=== PATIENT | male | born 1960 | race Caucasian/White ===

== ENCOUNTER 2024-10-08 12:15 | Emergency (ER) | payer MEDICARE, SELFPAY ==
--- OUTSIDE RECORDS SUMMARY | 2023-04-12 11:45 | XMS_ITS | Continuity of Care Document ---
Author Organization [facility] Address [address] [facility] [address] [place] [address] Phone Care Team Providers Care Senior Quality Methods Specialist Name Role Phone Beka BOLANOS, VELIA, ABA, [...] E&M Established 15 Mins [facility], [address] [place] [address] Dr Bahena 1000Suite 1000Ch[place], [id number], [place] tel:[phone] [facility] Venous insufficiency (chronic) (peripheral)Es sential (primary) hypertension 4 Beka BOLANOS RVT, RPVI Robert. [address] [facility], [address], [place], [id number] , [place]. tel:[phone] Referring Provider: Jabari Sams MD, [address] [place] [address] Suite [facility], [place], [address]. tel:[phone] [facility], [address] [place] [address] [address] 1000Charly [place], [id number], [place] tel:[phone] CVR - [facility] Encounter for follow-up examination after completed treatment for conditions other than malignant neVaricose veins of right lower extremity with pain 4 Beka BOLANOS RVT, RPVI Robert. [address] [place] [address], [place], [id number] , [place]. tel:[phone] Referring Provider: Jabari Sams MD, [address] [facility] Suite [facility], [place], [address]. tel:[phone] Office/Outpt E&M Established 15 Mins [facility], [address] [place] [address] Suite [address]Suite 1000Charly [place], [id number], [place] tel:[phone] CVR [facility] Chronic venous hypertension (idiopathic) with other complications of bilateral lower extremity Fe0 4 Beka BOLANOS RVT, ABA Melo. [address] [place] [address], [place], [id number] , [place]. tel:[phone] Referring Provider: Jabari Sams MD, [address] [facility] Suite [facility], [place], [address]. tel:[phone] [place] [facility], [address] [place] [address] [address] 1000Charly [place], [id number], [place] tel:[phone] CVR - [facility] Encounter for follow-up examination after completed treatment for conditions other than malignant neVaricose veins of right lower extremity with pain 4 Beka BOLANOS RVT, RPVI Robert. [address] [facility], [address], [place], [id number] , [place]. tel:[phone] Referring Provider: Jabari Sams MD, [address] [facility] [address], [facility] [place], [address]. tel:[phone] [place] [facility], [address] [place] [address] [address], [place], [id number], [place] tel:[phone] CVR - [place] [facility] [place] Varicose veins of right lower extremity with inflammation 4 Beka BOLANOS RVT, ABA Melo. [address] [place] [address], [address], [place], [place], [id number] , [place]. tel:[phone] Referring Provider: Jabari Sams MD, [address] [address], [facility] [place], [address]. tel:[phone] [place] [facility], [address] [place] [address] Dr Bahena 1000[address], [place], [id number], [place] tel:[phone] CV[place] - [place] [facility] [place] Chronic venous hypertension (idiopathic) with inflammation of right lower extremity 4 Beka BOLANOS RVT, ABA Melo. [address] [place] [address], [place] [address], [place], [place], [id number] , [place]. tel:[phone] Referring Provider: Jabari Sams MD, [address] [place] [address], [facility] [place], [address]. tel:[phone] Offic/outpt E&m Estab 5 Min Trial - Telemedicine [place] [facility], [address] [place] [address] [facility] [address], [place], [id number], [place] tel:[phone] [place] - [place] [facility] [place] Chronic venous hypertension (idiopathic) with other complications of bilateral lower extremity 3 Beka BOLANOS RVT, RPVI Robert. [address] [place] [address], [facility] [address], [place], [place], [id number] , [place]. tel:[phone] Referring Provider: Jabari Sams MD, [address] [facility] [address], [facility] [place], [address]. tel:[phone] Offic Cons New/estab Mod-hi 60 [place] [facility], [address], [place], [id number], tel:[phone] CVR - [place] [facility] [place] Varicose veins of bilateral lower extremities with other complicationsV aricose veins of right lower extremity with inflammationVa ricose veins of left lower extremity with inflammationPa in in right lower legEssential (primary) hypertensionPr uritus, unspecifiedPai n in left lower legLocalized edemaDisorder of pigmentation, unspecified 3 Beka BOLANOS, RVT, ABA Melo. [facility]0 [facility], [place] [address], [place], [place], [id number] , [place]. tel:[phone] Referring Provider: Jabari Sams MD, [address] [address], [place], [address]. tel:[phone] [facility], [address] [place] [address] Dr Bahena [address], [place], [id number], tel:[phone] CV[place] - [place] Varicose veins of bilateral lower extremities with pain 3 Michele BOLANOS FACS RVT ABA Her. [address] [place] [address], [place], [address], [place]. tel:[phone] Referring Provider: Jabari Sams MD, [address] [address], [place], [address]. tel:[phone] Family History Family Member Type Diagnosis Age At Onset No Information Payers Payer name Insurance type Covered democrat ID Melissa barcenas() [facility] [id number] Social History Type Description Quantity Date Captured [...] Information Instructions Date Instruction Additional Infor mation Compression stocking usage as conservative measure Related to Venous insufficiency (chronic) (peripheral) Patient education booklet given Related to Venous insufficiency (chronic) (peripheral) Lifestyle [...] to Body mass index (BMI) 21.0-21.9, adult Giving Encouragement to exercise Related to Body mass index (BMI) 21.0-21.9, adult Lifestyle education Related to B vahid mass index (BMI) 21.0-21.9, adult Patient education booklet given Related to Varicose veins of bilateral lower extremities with other complications Pre and post instruc tions reviewed and provided Related to Varicose veins of bilateral lower extremities with other complications Assessments Type Assessment Date No Information Patient Care Teams Name Effective Dates (start - stop) Status Members No Information
[2024-10-08 12:18] VITALS: BP 181/84; PULSE 65; RESP 18; TEMP 36.8; O2SAT 98; BMI 28.1
--- NOTE | 2024-10-08 12:18 | ED.GENADULT ---
HPI - General Adult General Chief complaint: GI Bleed Stated complaint: Blood in stool Time Seen by Provider: 10/08/24 13:58 History of Present Illness ED Provider: Kevin Escobedo MD HPI narrative: [age] male reporting rectal bleeding intermittently for about 3 days he has had this in the past he has had what he described as unremarkable colonoscopies in the past. He had 1 brown normal bowel movement with associated bright red blood 3 days ago and since that time he has had a few additional. No rectal pain no trauma. Denies fever lightheadedness or anemic symptoms Related Data Allergies Allergy/AdvReac Type Severity Reaction Status Date / Time No Known Allergies Allergy Verified 10/08/24 12:20 [facility] Social History Social History Advance Directives: No Advance Directives Information Provided: Yes Physical Exam ED Exam Exam: EXAM: Gen: Alert, awake, well appearing, well hydrated. Head: Atraumatic Eyes: Anicteric, Normal conjunctiva. ENT: Moist mucosa, no pallor. ? Neck: Supple. Skin: ?No observable rash or bruising on exposed or examined skin Respiratory: Breathing comfortably, No distress.Clear to auscultation bilaterally, symmetric chest expansion, No wheeze, rales, ronchi. Cardiovascular: Regular rate and rhythm. No murmurs or rub. Well perfused periphery, warm extremities. No edema. ? Abdominal: No focal tenderness. Soft, no objective distension. No palpable masses or obvious organomegaly. ?No guarding, no rebound tenderness or other peritoneal findings. Defers rectal patient had self-reported rectal exam at urgent care prior to arrival here. He verbally tells me that it was reported to him as unremarkable though there was a small scant amount of red blood on the glove : No flank tenderness. Neuro: Alert. Gross movement of all extremities intact. ? Psych: Calm. Cooperative. MSK: No grossly visible deformity. Vital signs: See flowsheet Vital Signs: Vital Signs - 24 hr 10/08/24 12:18 10/08/24 14:00 10/08/24 15:18 Temperature 98.2 F 98.2 F 98.2 F Pulse Rate 65 65 65 Respiratory Rate 18 18 18 Blood Pressure 181/84 H 172/71 H 181/84 H Pulse Oximetry 98 100 98 Oxygen Delivery Method Room Air Room Air Room Air 10/08/24 15:19 Temperature 98.3 F Pulse Rate 71 Respiratory Rate 15 Blood Pressure 165/74 H Pulse Oximetry 100 Oxygen Delivery Method Room Air BMI result Body Mass Index 28.1 Course Course Course Narrative: This is a Rapid Medical Examination (RME) performed by Cyndi Albrecht PA-C in triage. Full HPI, ROS, assessment and treatment plan per primary provider in the Main ED. Hx: 63 yo M here for eval of bloody stools x3 days. bright red blood. no abd pain. no thinners. hx of similar w/ constipation + straining. seen at in [place], advised to come to the ED. PE/vitals: well appearing Plan: labs Medical Decision Making Medical Decision Making MDM Narrative: Medical Decision Making: [age] male with self-described red blood mixed with normal stool. No anemic symptoms hemodynamics stable. No prior CBC to compare however stable CBC on repeat in the ED and slightly low end of normal range. Likely can be worked up as an outpatient though strict return precautions described to the patient No anticoagulation. Reliable for return after shared decision-making return precautions Preliminary Favored Differential Diagnosis: Lower GI bleed favored over upper GI bleed. Likely AVM versus Ca verse hemorrhoidal among additional considered etiologies Testing Interpreted Independently: ?See below for details Radiology or Lab testing Results Reviewed: ?See below for details Consults: ?See below for details Independent Historians/External Chart Reviews: ?See below for details Social Determinants of Health Impacting MDM/Planning: ?See below for details Admission/Observation Consideration of admission/observation: Escalation of care including admission/observation considered Lab Data MDM Lab Attestation statement: I reviewed the patient's lab results. 10/08/24 14:57 10/08/24 12:33 Labs: Lab Results 10/08/24 10/08/24 Range/Units 12:33 14:57 WBC 7.7 7.6 (4.8-10.8) X10*3/uL RBC 3.95 L 4.00 L (4.60-5.80) X10*6/uL Hgb 12.7 L 12.8 L (14.0-18.0) g/dl Hct 37.0 L 37.4 L (42.0-52.0) % MCV 93.7 93.5 (80.0-98.0) fL MCH 32.2 32.0 (27.0-33.0) pg MCHC 34.3 34.2 (31.0-36.0) g/dl RDW 13.5 13.5 (11.0-16.0) % Plt Count 275 283 (160-400) X10*3/uL MPV 9.9 9.8 (9.4-12.4) fL Immature Gran % (Auto) 0.3 0.3 (0.0-0.4) % Neut % (Auto) 64.3 66.9 (45-73) % Lymph % (Auto) 22.0 21.2 (20-40) % [place] % (Auto) 11.3 H 10.1 (2-11) % Eos % (Auto) 1.4 1.1 (0-4) % Baso % (Auto) 0.7 0.4 (0-2) % Lymph # (Auto) 1.7 1.6 (1.2-4.9) X10*3/uL [place] # (Auto) 0.9 0.8 (0.1-1.2) X10*3/uL Eos # (Auto) 0.1 0.1 (0.0-0.4) X10*3/uL Baso # (Auto) 0.1 0.0 (0.0-0.2) X10*3/uL Abs Immat Gran (auto) 0.02 0.02 (0.00-0.03) X10*3/uL Absolute Neuts (auto) 4.9 5.1 (2.0-8.3) x10*3/uL Absolute Nucleated RBC 0.000 0.000 (0.0-0.012) X10*3/uL Nucleated RBC % (auto) 0.0 0.0 (0.0-0.2) /100WBC PT 11.2 (10.9-12.4) SEC INR 1.0 (0.9-1.1) APTT 28.7 (26.7-34.1) SEC Sodium 142 (135-145) mmol/L Potassium 3.8 (3.3-5.1) mmol/L Chloride 107 (96-108) mmol/L Carbon Dioxide 29 (22-29) mmol/L Anion Gap 10 L (12-20) BUN 15 (9-16) mg/dL Creatinine 1.01 (0.5-1.4) mg/dL Estim Creat Clear Calc 87.9 Estimated GFR > 60 Random Glucose 118 H (60-115) mg/dL Calcium 8.9 (8.4-10.2) mg/dL Magnesium 2.2 (1.6-2.6) mg/dL Total Bilirubin 0.3 (0.0-1.0) mg/dL AST 29 (5-37) U/L ALT 40 (0-40) U/L Alkaline Phosphatase 90 (39-117) U/L Total Protein 7.0 (6.5-8.0) g/dL Albumin 4.2 (3.5-5.0) g/dL Lipase 41 (8-78) U/L Discharge Plan Discharge Clinical Impression: Hematochezia Patient Disposition: Home, Self-Care Instructions: Rectal Bleeding (ED), Colonoscopy (DC) Additional Instructions: DISCHARGE DIAGNOSES: Rectal bleeding unclear cause at this time reassuring blood counts stable with repeating HISTORY OF PRESENTATION: ?Rectal bleeding for 3 days EMERGENCY DEPARTMENT COURSE,TESTS, TREATMENTS: While in the ED today blood counts were in a stable range and did not drop on repeat, hemoglobin 12 0.7-12.8 on repeat. Blood chemistries and other tests normal DISCHARGE MEDICATIONS: ?[We have made no changes to your regular medication regimen] FOLLOW-UP: ?Call your primary or general physician soon as possible to discuss your symptoms, your ED visit and to discuss follow up plans Call GI as you will need a colonoscopy as outpatient INSTRUCTIONS ?& RETURN PRECAUTIONS: If any symptoms change first call your primary physician, if it is after-hours your primary doctors office should have a provider vision care associate you can speak with. If the symptoms are severe or very concerning to you then call 911 or return to the ED. Return for severe or recurrent bleeding Kevin Escobedo MD Emergency Physician [facility] Referrals: [facility] G[facility]ology Services [Provider Group, Gastroenterology] - 2 days Referral Note: [place] for hematochezia. call today inform them that we wanted you to be seen within the week to schedule a colonoscopy Interventions: ED Discharge Assessment Last Done: 10/08/24 15:18 Discharge Date/Time: 10/08/24 15:27 Print Language: Filipino
[2024-10-08 12:42] LABS: MANUAL DIFF FLAG NO
[2024-10-08 12:44] LABS: Hematocrit 37.0 % (42.0-52.0); Hemoglobin 12.7 g/dl (14.0-18.0); Imm Gran Abs Auto 0.02 X10*3/uL (0.00-0.03); Imm Gran Pct Auto 0.3 % (0.0-0.4); Lymphocytes Absolute Auto 1.7 X10*3/uL (1.2-4.9); Mean Corpuscular HGB Conc 34.3 g/dl (31.0-36.0); Mean Corpuscular Hemoglobin 32.2 pg (27.0-33.0); Mean Corpuscular Volume 93.7 fL (80.0-98.0); NRBC Abs Auto 0.000 X10*3/uL (0.0-0.012); NRBC Pct Auto 0.0 /100WBC (0.0-0.2); Platelet Count 275 X10*3/uL (160-400); Red Blood Count 3.95 X10*6/uL (4.60-5.80); White Blood Count 7.7 X10*3/uL (4.8-10.8)
[2024-10-08 12:59] LABS: Alanine Aminotransferase 40 U/L (0-40); Albumin Level 4.2 g/dL (3.5-5.0); Alkaline Phosphatase 90 U/L (39-117); Anion Gap 10 (12-20); Aspartate Amino Transferase 29 U/L (5-37); Blood Urea Nitrogen 15 mg/dL (9-16); Calcium 8.9 mg/dL (8.4-10.2); Carbon Dioxide 29 mmol/L (22-29); Chloride 107 mmol/L (96-108); Creatinine Clr Calc Pharmacy 87.9; Estimated Glomerular Filt Rate > 60; Lipase 41 U/L (8-78); Magnesium 2.2 mg/dL (1.6-2.6); Potassium 3.8 mmol/L (3.3-5.1); Sodium 142 mmol/L (135-145); Total Protein 7.0 g/dL (6.5-8.0)
[2024-10-08 14:00] VITALS: BP 172/71; PULSE 65; RESP 18; TEMP 36.8; O2SAT 100
[2024-10-08 15:02] LABS: MANUAL DIFF FLAG NO
[2024-10-08 15:03] LABS: Hematocrit 37.4 % (42.0-52.0); Hemoglobin 12.8 g/dl (14.0-18.0); Imm Gran Abs Auto 0.02 X10*3/uL (0.00-0.03); Imm Gran Pct Auto 0.3 % (0.0-0.4); Lymphocytes Absolute Auto 1.6 X10*3/uL (1.2-4.9); Mean Corpuscular HGB Conc 34.2 g/dl (31.0-36.0); Mean Corpuscular Hemoglobin 32.0 pg (27.0-33.0); Mean Corpuscular Volume 93.5 fL (80.0-98.0); NRBC Abs Auto 0.000 X10*3/uL (0.0-0.012); NRBC Pct Auto 0.0 /100WBC (0.0-0.2); Platelet Count 283 X10*3/uL (160-400); Red Blood Count 4.00 X10*6/uL (4.60-5.80); White Blood Count 7.6 X10*3/uL (4.8-10.8)
--- OUTSIDE RECORDS SUMMARY | 2024-10-08 15:16 | XMS_ITS | Encounter Summary ---
Author Organization [facility] Address [address] [place] [address] Care Team Providers Care Bargeman Name Role Phone Jabari Sams MD Primary Care Provider Encounter Details Date Type Department Care Team (Late st Contact Info) Description 12/11/2023 Lab Requisition [facility] - Main Lab [address] [place] [id number] Jabari Sams MD [address] [facility] [address] [place] [address] Other specified abnormal findings of blood chemistry Social History Tobacco Use Types Packs/Day Years Used Date Smoking Tobacco: Former Cigarettes Q uit: 10/12/2007 Smokeless Tobacco: Never Alcohol Use Standard Drinks/Week Comments No 0 (1 standard drink = 0.6 oz pur e alcohol) Sex and Gender Information Value Date Recorded Sex Assigned at Not on file Legal Sex Male 3:26 PM EST Gender Identity Not on file Sexual Orientation Not on file documented as of this encounter Plan of Treatment Not on file documented as of this encounter Procedures Procedure Name Priority Date/Time Associated Diagnosis Comments HEMOGLOBIN A1C Routine 12/11/2023 12:00 AM EST Other specified abnormal findings of blood chemistry documented in this encounter Results * Hemoglobin A1c (12/11/2023 12:00 AM EST) Hemoglobin A1C 5.8 <6.5 % LAB CHEMISTRY METHOD 12/12/2023 1:52 PM EST [facility] Mean Bld Glu Estim. 120 mg/dL LAB CHEMISTRY METHOD 12/12/2023 1:52 PM EST [facility] Blood Venous blood specimen / Unknown 12/11/2023 12/11/2023 6:27 PM EST Jabari Sams MD LAB BLOOD ORDERABLES Final Result [facility] [address] [place] [address], documented in this encounter Visit Diagnoses Diagnosis Other specified abnormal findings of blood chemistry documented in this encounter Care Teams Bargeman Relationship Specialty Start Date End Date Jabari Sams MD [address] PCP - General Internal Medicine 02/20/12 documented as of this encounter
--- OUTSIDE RECORDS SUMMARY | 2024-10-08 15:17 | XMS_ITS ---
Author Name [facility] [place]) Organization Unknown Care Team Organization Name Specialty Phone Email Start Date End Da te [facility] Primary [facility] 08/24/202308/2023 [facility] Primary Care 12/14/2021
--- OUTSIDE RECORDS SUMMARY | 2024-10-08 15:17 | XMS_ITS | Clinical Summary ---
Author Organization [address] Address [address] [place] [phone] Phone Care Team Providers Care Vp Software Support Name Role Phone Jabari Sams MD Primary Care Provider Surgical History Surgery Date Site/Laterality Comments COLONOSCOPY 09/04/2006 PROCEDURE: MN COLONOSCOPY FLX DX W/COLLJ SPEC WHEN PFRMD; COMMENT: Diverticulosis ESOPHAGOGASTRODUODENOSCOPY 09/04/2006 PROCEDURE: MN ESOPHAGOGASTRODUODENOSCOPY TRANSORAL DIAGNOSTIC; COMMENT: Negative on PPI rx HERNIA REPAIR PROCEDURE: REPAIR INGUINAL HERNIA Medical History Medical History Date Comments Irritable bowel syndrome 06/05/2006 DX:Irri table bowel syndrome; COMMENT: alternating constipation/diarrhea. Diverticulitis of colon (wit hout mention of hemorrhage)(562.11) 06/05/2006 DX:Diverticulitis of co gilles (without mention of hemorrhage)(562.11); COMMENT: first episode, outpatient management, May,. Special screening for malign ant neoplasms, colon 09/04/2006 DX:Special screening for mal ignant neoplasms, colon; COMMENT: Negative colonoscopy 09/04/2006, no colon cancer screening needed for 10 years. Esophageal reflux 04/25/2006 DX:Esophageal reflux Abnormal EKG 03/19/2009 DX:Abnormal EKG Elevated prostate specific a ntigen (PSA) 05/12/2006 DX:Elevated prostate specifi c antigen (PSA) Inguinal hernia without ment ion of obstruction or gangrene, unilateral or unspecified, (not specified as recurrent) 04/25/2006 DX:Inguinal hernia without m ention of obstruction or gangrene, unilateral or unspecified, (not specified as recurrent) Depressive disorder, not els ewhere classified 04/25/2006 DX:Depressive disorder, not elsewhere classified Anxiety state, unspecified 04/25/2006 DX:An xiety state, unspecified Family History Medical History Relation Name Comments Other: generally well Father Hypertension Mother Other: myocardial infarction at the age of 69 Mother Blindness Neg Hx Cataracts Neg Hx Glaucoma Neg Hx Macular degeneration Neg Hx Strabismus Neg Hx Relation Name Status Comments Father Mother Social History Tobacco Use Types Packs/Day Years [...] on file Sexual Orientation Not on file Obstetrics History Plan of Treatment Health Maintenance Due Date Last Done Comments Pneumococcal Vaccine: 50+ Ye ars (1 of 1 - PCV) 10/15/2009 Zoster Vaccines (1 of 2) 10/15/2009 DTaP,Tdap,and Td Vaccines (2 - Td or Tdap) 10/01/2019 09/30/2009 Cholesterol Screening (Lipid Panel) 01/05/2022 Colorectal Cancer Screening: Colonoscopy 01/05/2022 HIV Screening 01/05/2022 Hepatitis C Screening 01/05/2022 Social Influencers of Health Screening 01/05/2022 COVID-19 Vaccine ( - 2023-2 5 season) 2023 Depression Screening 02/07/2024 Influenza Vaccine (#1) 2024 RSV Immunization Adult Patie nts (1 - 1-dose 75+ series) 10/15/2034 HIB Vaccines Aged Out No longer eligi ble based on patient's age to complete this topic HPV Vaccines Aged Out No longer eligi ble based on patient's age to complete this topic Hepatitis A Vaccines Aged Out No long er eligible based on patient's age to complete this topic Hepatitis B Vaccines Aged Out No long er eligible based on patient's age to complete this topic IPV Vaccines Aged Out No longer eligi ble based on patient's age to complete this topic MMR Vaccines Aged Out No longer eligi ble based on patient's age to complete this topic Meningococcal ACWY Vaccine Aged Out N o longer eligible based on patient's age to complete this topic Meningococcal B Vaccine Aged Out No l onger eligible based on patient's age to complete this topic RSV Immunization Patients Un joselyn 20 months Aged Out No longer eligible b ased on patient's age to complete this topic Varicella Vaccines Aged Out No longer eligible based on patient's age to complete this topic Insurance * Guarantor: Alex Vail Account Type Relation to Patient Date of Phone Billing Address Personal/Family Self 1960 [phone] (Work) [address] [place] [address] [facility] Care Teams Vp Software Support Relationship Specialty Start Date End Date Jabari Sams MD [address] [place] [address] PCP - General Internal Medicine 02/20/12
[2024-10-08 15:18] VITALS: BP 181/84; PULSE 65; RESP 18; TEMP 36.8; O2SAT 98
[2024-10-08 15:19] VITALS: BP 165/74; PULSE 71; RESP 15; TEMP 36.8; O2SAT 100
[2024-10-08 15:20] LABS: INTERNATIONAL NORM RATIO 1.0 (0.9-1.1); Prothrombin Time 11.2 SEC (10.9-12.4)
[2024-10-08 15:22] LABS: Partial Thromboplastin Time 28.7 SEC (26.7-34.1)
== END 2024-10-08 15:27 | disposition home or self-care (01) ==
PROVIDERS: Physician Assistant Medical; Emergency Provider Emergency Medicine
DX: K92.1 Melena (principal)
CPT/HCPCS: 36415; 80053; 83690; 83735; 85025; 85610; 85730; 99283

== ENCOUNTER 2024-10-09 14:05 | Outpatient (AMB) | payer MEDICARE, SELFPAY ==
--- OUTSIDE RECORDS SUMMARY | 2023-04-12 11:45 | XMS_ITS | Continuity of Care Document ---
Author Organization [facility] Address [address] [facility] [address] [place] [address] Phone Care Team Providers Care Billet Shearer Name Role Phone Beka BOLANOS, VELIA, ABA, [...] E&M Established 15 Mins [facility], [address] [place] [address] Dr Bahena 1000Suite 1000Ch[place], [id number], [place] tel:[phone] [facility] Venous insufficiency (chronic) (peripheral)Es sential (primary) hypertension 4 Beka BOLANOS RVT, RPVI Robert. [address] [facility], [address], [place], [id number] , [place]. tel:[phone] Referring Provider: Jabari Sams MD, [address] [place] [address] Suite [facility], [place], [address]. tel:[phone] [facility], [address] [place] [address] [address] 1000Charly [place], [id number], [place] tel:[phone] CVR - [facility] Encounter for follow-up examination after completed treatment for conditions other than malignant neVaricose veins of right lower extremity with pain 4 Beka BOLANOS RVT, RPVI Robert. [address] [place] [address], [place], [id number] , [place]. tel:[phone] Referring Provider: Jabari Sams MD, [address] [facility] Suite [facility], [place], [address]. tel:[phone] Office/Outpt E&M Established 15 Mins [facility], [address] [place] [address] [address] 1000Charly [place], [id number], [place] tel:[phone] CVR [facility] Chronic venous hypertension (idiopathic) with other complications of bilateral lower extremity Fe0 4 Beka BOLANOS RVT, ABA Melo. [address] [place] [address], [place], [id number] , [place]. tel:[phone] Referring Provider: Jabari Sams MD, [address] [facility] Suite [facility], [place], [address]. tel:[phone] [place] [facility], [address] [place] [address] [address]Suite 1000Charly [place], [id number], [place] tel:[phone] CVR - [facility] Encounter for follow-up examination after completed treatment for conditions other than malignant neVaricose veins of right lower extremity with pain 4 Beka BOLANOS RVT, RPVI Robert. [address] [facility], [address], [place], [id number] , [place]. tel:[phone] Referring Provider: Jabari Sams MD, [address] [facility] [address], [place], [address]. tel:[phone] [place] [facility], [address] [place] [address] [address], [place], [id number], [place] tel:[phone] [place] [facility] [place] Varicose veins of right lower extremity with inflammation 4 Beka BOLANOS RVT, ABA Melo. [address] [place] [address], [address], [place], [place], [id number] , [place]. tel:[phone] Referring Provider: Jabari Sams MD, [address] [address], [place], [address]. tel:[phone] [place] [facility], [address] [place] [address] Dr Bahena 1000[address], [place], [id number], [place] tel:[phone] [facility] - [place] [facility] [place] Chronic venous hypertension (idiopathic) with inflammation of right lower extremity 4 Beka BOLANOS RVT, ABA Melo. [address] [place] [address], [place] [address], [place], [place], [id number] , [place]. tel:[phone] Referring Provider: Jabari Sams MD, [address] [place] [address], [facility] [place], [address]. tel:[phone] Offic/outpt E&m Estab 5 Min Trial - Telemedicine [place] [facility], [address] [place] [address] [facility] [address], [place], [id number], [place] tel:[phone] [facility] - [place] [facility] [place] Chronic venous hypertension (idiopathic) with other complications of bilateral lower extremity 3 Beka BOLANOS RVT, RPVI Robert. [address] [place] [address], [facility] [address], [place], [place], [id number] , [place]. tel:[phone] Referring Provider: Jabari Sams MD, [address] [facility] [address], [place], [address]. tel:[phone] Offic Cons New/estab Mod-hi 60 [place] [facility], [address], [place], [id number], tel:[phone] [facility] - [place] [facility] [place] Varicose veins of bilateral lower extremities with other complicationsV aricose veins of right lower extremity with inflammationVa ricose veins of left lower extremity with inflammationPa in in right lower legEssential (primary) hypertensionPr uritus, unspecifiedPai n in left lower legLocalized edemaDisorder of pigmentation, unspecified 3 Beka BOLANOS, RVT, ABA Melo. [facility], [place] [address], [place], [place], [id number] , [place]. tel:[phone] Referring Provider: Jabari Sams MD, [address] [address], [place], [address]. tel:[phone] [facility], [address] [place] [address] Dr Bahena 1000[address], [place], [id number], tel:[phone] [facility] - [place] [facility] [place] Varicose veins of bilateral lower extremities with pain 3 Michele BOLANOS FACS RVT ABA Her. [address] [place] [address], [place], [address], [place]. tel:[phone] Referring Provider: Jabari Sams MD, [address] [address], [place], [address]. tel:[phone] Family History Family Member Type Diagnosis Age At Onset No Information Payers Payer name Insurance type Covered democrat ID Melissa barcenas() [facility] [id number] Social History Type Description Quantity Date Captured [...] Of Treatment Date Type Action Status Goal Tobacco cessation counseling completed Goal Diet education completed Goal Tobacco cessation counseling completed Goal Tobacco cessation counseling completed Goal Diet education completed Goal Tobacco cessation counseling completed Referral Ordered: Weight management: Referral to [...] No Information Instructions Date Instruction Additional Infor mation Patient education booklet given Related to Venous insufficiency (chronic) (peripheral) Compression stocking usage as conservative measure Related to Venous insufficiency (chronic) (peripheral) Lifestyle education Related to B vahid mass index (BMI) 21.0-21.9, adult Giving Encouragement to exercise Related to Body mass index (BMI) 21.0-21.9, adult Diet education Related to Body mass index (BMI) 21.0-21.9, adult Continue compression stocking us e Related to Chrn Vns Hyprtnsn w/Compl (Pain Edema Swelling); BILAT Patient education booklet given Related to Chrn Vns Hyprtnsn w/Compl (Pain Edema Swelling); BILAT Diet education Related to Body mass index (BMI) 21.0-21.9, adult Pre and post instruc tions reviewed and provided Related to Varicose veins of bilateral lower extremities with other complications Patient education booklet given Related to Varicose [...]
[2024-10-09 14:08] VITALS: BP 128/70; PULSE 83; O2SAT 98; BMI 27.9
--- NOTE | 2024-10-09 14:08 | A.OFFPC_ITS ---
Vital Signs 10/09/24 14:08 Height 6 ft Weight 206 lb BMI 27.9 BP 128/70 Blood Pressure Location Lt brachial Position Sitting Pulse 83 Pulse Source Pulse Oximeter Pulse Oximetry (%) 98 Oxygen Delivery Method Room Air Intake Visit Reasons: new patient Allergies No Known Allergies Allergy (Verified 10/09/24 14:35) Medication List - Last Reconciled 10/09/24 by Jose Barbosa MD losartan 100 mg PO DAILY tamsulosin (Flomax) 0.4 mg PO DAILY Tobacco use date assessed: 10/09/24 Fall risk assessment: No Falls in past year Last assessed Fall Risk: 10/09/24 Dental Screening Dental Screen Date: 10/09/24 Did you have a dental visit in the last 12 months?: Yes Did you have a dental problem in the last 6 months where you did not have access to dental care?: No Was dental information given to patient?: Patient has dentist HPI new patient HPI Details Patient comes in for his HDF (ER visit yesterday, 10/08/24) and to establish care - is a new patient to the practice His previous PCP was Dr. Sams at [facility], who retired from medical practice sometime last year Patient states that he was feeling well but recalls getting constipated often lately and thinks that he was straining a lot when he was using the bathroom for the past few days leading up to his seeing blood in his stools about 3 to 4 days ago States that he's had at least a couple of colonoscopies done in the past and as far as he is aware, his colonoscopies have all come out normal He denies experiencing any abdominal pain recently when he was passing out blood in his stool He denies any headaches of dizziness Denies any chest pains, no SOB No nausea/vomiting noted lately He also denies any acute urinary symptoms but he takes Tamsulosin everyday for issues with his prostate PFSH Medical History (Updated 10/09/24 @ 15:19 by Jose Barbosa MD) Overweight (BMI 25.0-29.9) BPH (benign prostatic hyperplasia) Essential hypertension Surgical History (Updated 10/09/24 @ 15:03 by Jose Barbosa MD) History of colonoscopy History of inguinal hernia repair Family History (Updated 10/09/24 @ 14:15 by Selene Henson CMA) Mother No problems noted. Father No problems noted. Brother No problems noted. Brother No problems noted. Brother No problems noted. Sister No problems noted. Social History Housing: House Patient Tobacco Use Status: Former Tobacco user Tobacco use type: Cigarette e-Cigarette/Vaping Use: Never Used Second Hand Smoke Exposure: No service: No Current occupational status: retired Current occupational exposures/hazards: No Cognitive needs: No Hearing needs: No Vision needs: Yes Questionnaire PHQ-9 Over the last 2 weeks, how often have you been bothered by any of the following problems? 1. Little interest or pleasure in doing things: several days 2. Feeling down, depressed, or hopeless: not at all 3. Trouble falling or staying asleep, or sleeping too much: not at all 4. Feeling tired or having little energy: several days 5. Poor appetite or overeating: not at all 6. Feeling bad about yourself - or that you are a failure or have let yourself or your family down: not at all 7. Trouble concentrating on things, such as reading the newspaper or watching television: not at all 8. Moving or speaking so slowly that other people could have noticed. Or the opposite - being so fidgety or restless that you have been moving around a lot more than usual: not at all 9. Thoughts that you would be better off or of hurting yourself in some way: not at all Total score: 2 Depression Screening Interpretation: Negative Depression Screening Done: Yes 79460 - PHQ-9 Billing: Yes Source: Developed by Drs. Kameron Ortiz, Jess Johnson, Onur Carey and colleagues, with an educational jesus from [employer]. Thrive Questionnaire Date Thrive assessed: 10/09/24 I am a: Patient What is your living situation today?: I have a steady place to live Within the past 12 months, did the food you bought not last and you didn't have the money to get more?: I choose not to answer this question Within the past 12 months, did you worry whether your food would run out before you got money to buy more?: I choose not to answer this question Do you have trouble paying for medicines?: I choose not to answer this question Do you have trouble getting transportation to medical appointments?: I choose not to answer this question Do you have trouble paying your heating and electricity bill?: I choose not to answer this question Do you have trouble taking care of your child, family member or friend?: I choose not to answer this question Do you have trouble with day-to-day activities such as bathing, preparing meals, shopping, managing finances, etc.?: I choose not to answer this question Are you currently unemployed and looking for a job?: I choose not to answer this question Are you interested in more education?: I choose not to answer this question Please select the resources that you would like help with: None Currently or been in a relationship where the following occur: I choose not to answer THRIVE Score: 0 AUDIT C Alcohol Use Questionnaire (AUDIT-C) 1. How often do you have a drink containing alcohol?: Never 3. How often do you have six or more drinks on one occasion?: Never Total Score: 0 Score Reviewed/Action Taken: Yes MINOR-7 AMB Questionnaire MINOR-7 Date MINOR - 7 assessed: 10/09/24 Feeling nervous, anxious, or on edge: 0 = Not at all Not being able to stop or control worryin = Not at all Worrying too much about different things: 0 = Not at all Trouble relaxin = Not at all Being so restless that it is hard to sit still: 0 = Not at all Becoming easily annoyed or irritable: 0 = Not at all Feeling afraid as if something awful might happen: 0 = Not at all Total MINOR-7 score (0-4 normal; 5-9 mild; 10-14 moderate; 15-21 severe): 0 Source: Developed by Drs. Kameron Ortiz, Jess Johnson, Onur Carey and colleagues, with an educational jesus from [employer]. Review of Systems Const Denies fatigue, Denies fever(s) and Denies headache(s) ENT Denies dysphagia, Denies dizziness, Denies otalgia, Denies headache(s), Denies neck pain and Denies sore throat Card Denies chest pain, Denies palpitations and Denies dyspnea Resp Denies chest congestion, Denies cough and Denies dyspnea GI Denies abdominal pain, Reports hematochezia (see HPI), Reports constipation (increased lately), Denies dysphagia, Denies heartburn, Denies diarrhea, Denies nausea and Denies vomiting Denies difficulty urinating, Denies dysuria, Denies nocturia and Denies urinary frequency Musc Denies back pain and Denies neck pain Skin/Breast Denies rash Neuro Denies dizziness and Denies headache(s) Endo Denies fatigue and Denies palpitations Physical exam (Primary Care) Vital Signs: Last Vital Signs Pulse 83 10/09/24 14:08 BP 128/70 10/09/24 14:08 Pulse Ox 98 10/09/24 14:08 Oxygen Delivery Method Room Air 10/09/24 14:08 BMI result Body Mass Index 27.9 Tobacco/Smoking Status: Tobacco use Status Tobacco use date assessed 10/09/24 10/09/24 14:16 Patient Tobacco Use Status Former Tobacco user 10/09/24 14:16 Tobacco use type Cigarette 10/09/24 14:16 e-Cigarette/Vaping Use Never Used 10/09/24 14:16 PHQ-9: PHQ-9 Score PHQ-9: Total score 2 10/09/24 14:09 Depression Screening Interpretation: Negative Thrive Assessment: Date of Thrive Assessment Date Thrive assessed 10/09/24 10/09/24 14:09 Currently or been in a relationship where the following occur: I choose not to answer Const General: no acute distress and alert HENMT Throat: Yes posterior oropharynx normal and Yes tonsils normal (no TP congestion noted) Neck Neck: Yes supple and No lymphadenopathy Thyroid: Thyroid normal Resp Auscultation: clear to auscultation bilaterally, no rales and no wheezes Cardio Rate: regular rate Rhythm: regular rhythm Heart sounds: no murmurs GI Palpation (GI): Soft to palpation and nontender Auscultation: normal bowel sounds General: Yes no CVA tenderness Back/Spine/Pelvis Back: no CVA tenderness Thoracic/Lumbar Spine: No lumbar spinal tenderness Skin Rashes: no rashes Extrem General: Yes no clubbing, cyanosis or edema Coding Level of Care Code New Pt Level 4 (81460) Diagnoses Rectal bleeding K62.5 Essential hypertension I10 Benign prostatic hyperplasia, unspecified whether lower urinary tract symptoms present N40.0 Lower urinary tract symptom presence: unspecified whether lower urinary tract symptoms present Overweight (BMI 25.0-29.9) E66.3 Additional Codes PHQ-9 - 08454 - PHQ-9 Billing: Yes ([id number]) Assessment & Plan Assessment & Plan (1) Rectal bleeding: Code(s): K62.5 - Hemorrhage of anus and rectum Category: Medical Plan: Discussed with patient that his recent rectal bleeding is most likely due to hemorrhoids, based on the narrative that he provided over the past few days leading up to his symptoms Have also reassured him that his labs done at the ER yesterday were all mostly unrevealing Will go ahead and refer him to GI for urgent consultation - he will likely benefit from (and is also likely due for) a repeat colonoscopy Have advised patient in the meantime to make sure to increase his oral fluid and dietary fiber intake to avoid getting constipated as much as possible and that he can also take some OTC stool softener if needed (2) Essential hypertension: Code(s): I10 - Essential (primary) hypertension Category: Medical Plan: Reinforced low sodium diet - goal is systolic BP of 120 mm or less Continue Losartan 100 mg QD (3) BPH (benign prostatic hyperplasia): Code(s): N40.0 - Benign prostatic hyperplasia without lower urinary tract symptoms Category: Medical Qualifiers: Lower urinary tract symptom presence: unspecified whether lower urinary tract symptoms present Qualified Code(s): N40.0 - Benign prostatic hyperplasia without lower urinary tract symptoms Plan: Continue Tamsulosin 0.4 mg Q HS Follow up with urology as scheduled (4) Overweight (BMI 25.0-29.9): Code(s): E66.3 - Overweight Category: Medical Plan: Reinforced diet/exercise as tolerated/lose weight Plan To return in February 2025 for his annual physical examination Patient is instructed to get his labs done (ordered today) a few days BEFORE he comes back for his next appointment Orders: Orders Comprehensive Stanley. Panel Fast 02/07/25 E78.00 - Pure hypercholesterolemia, unspecified, Z00.00 - Encounter for general adult medical examination without abnormal findings Lipid Panel 02/07/25 E78.00 - Pure hypercholesterolemia, unspecified, Z00.00 - Encounter for general adult medical examination without abnormal findings Hemoglobin A1c 02/07/25 R73.9 - Hyperglycemia, unspecified Complete Blood Count Auto Diff 02/07/25 D64.9 - Anemia, unspecified, Z00.00 - Encounter for general adult medical examination without abnormal findings TSH reflex Free T4 02/07/25 E78.00 - Pure hypercholesterolemia, unspecified, Z0 0.00 - Encounter for general adult medical examination without abnormal findings UA CC w/rflx Micro + Cult 02/07/25 R30.0 - Dysuria, Z00.00 - Encounter for general adult medical examination without abnormal findings Vitamin D 25-OH Total 02/07/25 E55.9 - Vitamin D deficiency, unspecified, Z00.00 - Encounter for general adult medical examination without abnormal findings Referrals Gastroenterology Referral K62.5 - Hemorrhage of anus and rectum
--- OUTSIDE RECORDS SUMMARY | 2024-10-09 16:23 | XMS_ITS | Patient Health Record ---
[facility] Address [address] [facility] [place] [address] Care Team Providers Care Vamp Cut Out Worker Name Role Phone Jabari Sams MD Primary Care Provider Unav ailable Calvin Sanchesik Unavailable [phone] Allergies Allergen (clinical drug ingredient) Drug/Non Drug Allergy documented on EMR Reaction Allergy Type Onset Date Status bee sting Unknown Drug Allergy Active Reason For Referral No Information Medications Medication SIG (Take, Route, Fr equency, Duration) Notes Start Date End Date Status Lisinopril 20 MG 1 tablet Orally Once a day Active Protonix Active Problems Problem Type SNOMED Code ICD Code Onset Dates Problem Status W/U Status Risk Notes Problem Ingrowing nail ([id number]) Ingrowing nail (L60.0) Active confirmed Plan Of Treatment Pending Test Test Name Order Date 59261-Zyeluqez Plate 09/01/2015 Insurance Providers Payer Name Payer Address Payer Phone Subscriber Number Group Number Insured Name Patient Relationship to Insured Coverage Start Date Coverage End Date [facility] [address] [place] [address] [phone] [id number] Alex Jarvis Self - patient is the insured Medical (General) History Medical History History ICD Code High blood pressure Chicken pox Surgical History Surgery Date(Month/Year) hernia 2013
--- OUTSIDE RECORDS SUMMARY | 2024-10-09 16:23 | XMS_ITS | Clinical Summary ---
Author Organization [address] Address [address] [place] [phone] Phone Care Team Providers Care Machine Operator Picker Name Role Phone Jabari Sams MD Primary Care Provider Surgical History Surgery Date Site/Laterality Comments COLONOSCOPY 09/04/2006 PROCEDURE: [place] COLONOSCOPY FLX DX W/COLLJ SPEC WHEN PFRMD; COMMENT: Diverticulosis ESOPHAGOGASTRODUODENOSCOPY 09/04/2006 PROCEDURE: [place] ESOPHAGOGASTRODUODENOSCOPY TRANSORAL DIAGNOSTIC; COMMENT: Negative on PPI [...] of Phone Billing Address Personal/Family Self 1960 [phone] (Work) [address] [place] [address] [facility] Care Teams Machine Operator Picker Relationship Specialty Start Date End Date Jabari Sams MD [address] [place] [address] PCP - General Internal Medicine 02/20/12
--- OUTSIDE RECORDS SUMMARY | 2024-10-09 16:23 | XMS_ITS | Encounter Summary ---
Author Organization [facility] Address [address] [place] [address] Care Team Providers Care Behavioral Health Director Name Role Phone Jabari Sams MD Primary Care Provider Encounter Details Date Type Department Care Team (Late st Contact Info) Description 12/11/2023 Lab Requisition [facility] - Main Lab [address] [place] [phone] Jabari Sams MD [address] [facility] [address] [place] [address] Other specified abnormal findings of blood chemistry [...] LAB CHEMISTRY METHOD 12/12/2023 1:52 PM EST [facility] Mean Bld Glu Estim. 120 mg/dL LAB CHEMISTRY METHOD 12/12/2023 1:52 PM EST [facility] Blood Venous blood specimen / Unknown 12/11/2023 12/11/2023 6:27 PM EST Jabari Sams MD LAB BLOOD ORDERABLES Final Result [facility] [address] [place] [address], documented in this encounter Visit Diagnoses Diagnosis Other specified abnormal findings of blood chemistry documented in this encounter Care Teams Behavioral Health Director Relationship Specialty Start Date End Date Jabari Sams MD [address] PCP - General Internal Medicine 02/20/12 documented as of this encounter
== END 2024-10-09 14:50 | disposition home or self-care (01) ==
LOC: HO.HMCH 14:06
PROVIDERS: Visit Provider Internal Medicine
DX: K62.5 Hemorrhage of anus and rectum (principal); I10 Essential (primary) hypertension; N40.0 Benign prostatic hyperplasia without lower urinary tract symptoms; E66.3 Overweight

== ENCOUNTER → 2024-10-09 14:05 | Outpatient (BNVA) | payer MEDICARE, SELFPAY | PROVIDERS: Visit Provider Internal Medicine | DX: K62.5 Hemorrhage of anus and rectum (principal); I10 Essential (primary) hypertension; E66.3 Overweight; E78.00 Pure hypercholesterolemia, unspecified; R73.9 Hyperglycemia, unspecified; D64.9 Anemia, unspecified; R30.0 Dysuria | CPT/HCPCS: 96127; 99202 ==

== ENCOUNTER 2024-10-10 13:05 | Outpatient (AMB) | payer MEDICARE, SELFPAY ==
--- OUTSIDE RECORDS SUMMARY | 2023-04-12 11:45 | XMS_ITS | Continuity of Care Document ---
Author Organization [facility] Address [address] [facility] [address] [place] [address] Phone Care Team Providers Care Consumer Services Advisor Name Role Phone Beka BOLANOS, VELIA, ABA, Kameron Unavailable U navailable Allergies, Adverse Reactions, Alerts Substance Reaction Status Criticality No Known Allergies Active No Inform ation Medications Medication Instructions Dosage Effective Dates (start - stop) Status Comments lisinopril 5 mg tablet - Active Procedures Procedure Date Office/Outpt E&M Established 15 Mins Apr Duplex Scan-extrem Veins; Uni/ Office/Outpt E&M Established 15 Mins Mar Duplex Scan-extrem Veins; Uni/ Endovenous Laser, 1st Vein Endovenous Rf, 1st Vein Offic/outpt E&m Estab 5 Min Trial - Tele medicine Offic Cons New/estab Mod-hi 60 Duplex Scan-extrem Veins; Comp Advance Directives Directive Yes / No Effective Date File Name No Information Encounters Encounter Description Practice Location Reason(s) For Visit Diagnoses Date Provider Providers Copied on Encounter Office/Outpt E&M Established 15 Mins [facility], [address] [place] [address] Dr Bahena 1000[address], [id number], [place] tel:[phone] [facility] Venous insufficiency (chronic) (peripheral)Es sential (primary) hypertension 4 Beka BOLANOS RVT, RPVI Robert. [address] [facility], [address], [place], [id number] , [place]. tel:[phone] Referring Provider: Jabari Sams MD, [address] [place] [address] Suite [facility], [place], [address]. tel:[phone] [facility], [address] [place] [address] [address]Charly [place], [id number], [place] tel:[phone] CVR - [facility] Encounter for follow-up examination after completed treatment for conditions other than malignant neVaricose veins of right lower extremity with pain 4 Beka BOLANOS RVT, RPVI Robert. [address] [place] [address], [place], [id number] , [place]. tel:[phone] Referring Provider: Jabari Sams MD, [address] [facility] Suite [facility], [place], [address]. tel:[phone] Office/Outpt E&M Established 15 Mins [facility], [address] [place] [address] [address]Charly [place], [id number], [place] tel:[phone] CVR [facility] Chronic venous hypertension (idiopathic) with other complications of bilateral lower extremity Fe0 4 Beka BOLANOS RVT, ABA Melo. [address] [place] [address], [place], [id number] , [place]. tel:[phone] Referring Provider: Jabari Sams MD, [address] [facility] Suite [facility], [place], [address]. tel:[phone] [facility], [address] [place] [address] [address]Charly [place], [id number], [place] tel:[phone] CVR - [facility] Encounter for follow-up examination after completed treatment for conditions other than malignant neVaricose veins of right lower extremity with pain 4 Beka BOLANOS RVT, RPVI Robert. [address] [facility], [address], [place], [id number] , [place]. tel:[phone] Referring Provider: Jabari Sams MD, [address] [facility] [address], [facility] [place] [place], [address]. tel:[phone] [facility], [address] [place] [address] [address], [place], [id number], [place] tel:[phone] [facility] [place] [facility] [place] Varicose veins of right lower extremity with inflammation 4 Beka BOLANOS RVT, ABA Melo. [address] [place] [address], [address], [place], [place], [id number] , [place]. tel:[phone] Referring Provider: Jabari Sams MD, [address] [address], [facility] [place] [place], [address]. tel:[phone] [facility], [address] [place] [address] Dr Bahena [address], [place], [id number], [place] tel:[phone] [facility] - [place] [facility] [place] Chronic venous hypertension (idiopathic) with inflammation of right lower extremity 4 Beka BOLANOS RVT, ABA Melo. [address] [place] [address], [place] [address], [place], [place], [id number] , [place]. tel:[phone] Referring Provider: Jabari Sams MD, [address] [place] [address], [facility] [place], [address]. tel:[phone] Offic/outpt E&m Estab 5 Min Trial - Telemedicine [facility], [address] [place] [address] [facility] [address], [place], [id number], [place] tel:[phone] [place] - [place] [facility] [place] Chronic venous hypertension (idiopathic) with other complications of bilateral lower extremity 3 Beka BOLANOS RVT, RPVI Robert. [address] [place] [address], [facility] [address], [place], [place], [id number] , [place]. tel:[phone] Referring Provider: Jabari Sams MD, [address] [facility] [address], [facility] [place], [address]. tel:[phone] Offic Cons New/estab Mod-hi 60 [facility], [address], [place], [id number], tel:[phone] [facility] - [place] [facility] [place] Varicose veins of bilateral lower extremities with other complicationsV aricose veins of right lower extremity with inflammationVa ricose veins of left lower extremity with inflammationPa in in right lower legEssential (primary) hypertensionPr uritus, unspecifiedPai n in left lower legLocalized edemaDisorder of pigmentation, unspecified 3 Beka BOLANOS, RVT, ABA Melo. [facility], [place] [address], [place], [place], [id number] , [place]. tel:[phone] Referring Provider: Jabari Sams MD, [address] [address], [place], [address]. tel:[phone] [facility], [address] [place] [address] Dr Bahena [address], [place], [id number], tel:[phone] [facility] [place] [facility] [place] Varicose veins of bilateral lower extremities with pain 3 Michele BOLANOS FACS RVT ABA Her. [address] [place] [address], [place], [address], [place]. tel:[phone] Referring Provider: Jabari Sams MD, [address] [address], [place], [address]. tel:[phone] Family History Family Member Type Diagnosis Age At Onset No Information Payers Payer name Insurance type Covered constitution party ID Melissa barcenas() [facility] [id number] Social History Type Description Quantity Date Captured Comments Alcohol Use Details Unknown Caffeine Use Details Unknown Tobacco Use Status No Information Smoking Status Former Smoker Non-Smoking Tobacco Use Details : No Details Available : No Details Available Sex Male Vital Signs Date / Time: Height Weight BMI Pulse Rate Blood Pressure Temperature Respiratory Rate Body Surface Area Head Circumference Head Circ. Percentile Wt./Segundo. Percentile BMI percentile Pulse Ox Inhaled Ox 70.310 kg (155.00 lbs) 21.0 2 kg/m eter (2) 142/88 mm[Hg] Chief Complaint And Reason For Visit No Information Reason For Referral Reason For Referral No Information Plan Of Treatment Date Type Action Status Goal Diet education completed Goal Tobacco cessation counseling completed Goal Tobacco cessation counseling completed Goal Tobacco cessation counseling completed Goal Tobacco cessation counseling completed Goal Diet education completed Referral Ordered: Weight management: Referral to physician timeframe: 3 Months (related to Body mass index (BMI) 21.0-21.9, adult) ordered Referral Ordered: Weight management: Referral to physician timeframe: 3 Months (related to Body mass index (BMI) 21.0-21.9, adult) ordered History Of Present Illness Encounter Date Complaint History Of Prese nt Illness No Information Functional Status Date Functional Assessmen t No Information Instructions Date Instruction Additional Infor rosaleeion Lifestyle education Related to B vahid mass index (BMI) 21.0-21.9, adult Giving Encouragement to exercise Related to Body mass index (BMI) 21.0-21.9, adult Diet education Related to Body mass index (BMI) 21.0-21.9, adult Patient education booklet given Related to Venous insufficiency (chronic) (peripheral) Compression stocking usage as conservative measure Related to Venous insufficiency (chronic) (peripheral) Continue compression stocking us e Related to Chrn Vns Hyprtnsn w/Compl (Pain Edema Swelling); BILAT Patient education booklet given Related to Chrn Vns Hyprtnsn w/Compl (Pain Edema Swelling); BILAT Patient education booklet given Related to Varicose veins of bilateral lower extremities with other complications Lifestyle education Related to B vahid mass index (BMI) 21.0-21.9, adult Giving Encouragement to exercise Related to Body mass index (BMI) 21.0-21.9, adult Pre and post instruc tions reviewed and provided Related to Varicose veins of bilateral lower extremities with other complications Diet education Related to Body mass index (BMI) 21.0-21.9, adult Assessments Type Assessment Date No Information Patient Care Teams Name Effective Dates (start - stop) Status Members No Information
--- NOTE | 2024-10-10 13:11 | MHC.OFFVIS ---
Vital Signs 10/10/24 13:12 Height 6 ft Weight 206 lb BMI 27.9 BP 145/67 H Blood Pressure Location Lt brachial Position Sitting Pulse 86 Pulse Oximetry (%) 96 Oxygen Delivery Method Room Air Intake Visit Reasons: rectal bleed Intake Note: Patient new consult for rectal bleeding. Patient cc: rectal bleeding/bright red. denies any other GI issues. Client Insights Consultant Required: No Accompanied by: Self / Same As Patient Allergies No Known Allergies Allergy (Verified 10/10/24 13:11) HPI HPI rectal bleed: Details: Patient is a 63-year-old male with PMH of overweight, hypertension, BPH. Referred by PCP for further evaluation of blood in stools Alex presents with acute onset of blood in the stool, first noted three days ago. He describes the bleeding as initially severe, with visible blood in the toilet and on tissue, now markedly decreased. The episode was associated with loose, frequent stools, which are returning toward baseline. No abdominal pain, nausea, vomiting, heartburn, or dysphagia reported. Appetite slightly reduced, attributed to concern about exacerbating bleeding. No unintentional weight loss. Dietary history notable for recent high cheese and junk food intake, possibly contributing to intermittent constipation prior to onset. He sought care at urgent care, where rectal exam was unremarkable, and was referred to the ER for further evaluation; labs at the ER showed borderline low hemoglobin, but no acute intervention was required. No imaging performed at that time. Bleeding has continued to decrease, with only minimal blood noted today. He denies excessive NSAID use Alex is planning imminent international travel and is concerned about recurrence or aggravation of symptoms from potential diagnostics. Prefers to complete any testing upon his return from [place]. History significant for remote diverticulitis treated with antibiotics >15 years ago. No prior GI malignancy or family history of colon/stomach cancer. Social hx: - ETOH use, approx 5 drinks/week -denies recreational drug use -non-smoker - family hx as below -denies personal hx of CA -denies significant cardiopulmonary history -tolerated anesthesia in the past without difficulty. [facility] Medical History (Updated 10/09/24 @ 15:19 by Jose Barbosa MD) Overweight (BMI 25.0-29.9) BPH (benign prostatic hyperplasia) Essential hypertension Surgical History History of colonoscopy History of inguinal hernia repair Family History Mother No problems noted. Father No problems noted. Brother No problems noted. Brother No problems noted. Brother No problems noted. Sister No problems noted. Social History Housing: House Patient Tobacco Use Status: Former Tobacco user Tobacco use type: Cigarette e-Cigarette/Vaping Use: Never Used Second Hand Smoke Exposure: No service: No Current occupational status: retired Current occupational exposures/hazards: No Cognitive needs: No Hearing needs: No Vision needs: Yes Review of Systems Const Reports as per HPI ENT Reports as per HPI Card Reports as per HPI Resp Reports as per HPI GI Reports as per HPI Reports as per HPI Physical Exam Vital Signs: Last Vital Signs Pulse 86 10/10/24 13:12 BP 145/67 H 10/10/24 13:12 Pulse Ox 96 10/10/24 13:12 Oxygen Delivery Method Room Air 10/10/24 13:12 BMI result Body Mass Index 27.9 Const General: healthy appearing, no acute distress and well developed Nutritional Appearance: average body habitus Orientation/consciousness: patient oriented x3 HEENT Head: Yes normal to inspection, Yes normocephalic and Yes atraumatic Face and sinus: Yes normal facial exam Eyes General: appearance normal, both eyes and all related structures Neck Neck: Yes normal visual inspection Resp Effort & Inspection: normal respiratory effort, able to speak in complete sentences, no tracheal deviation and symmetric chest movement Auscultation: clear to auscultation bilaterally Cardio Jugular venous distension: no JVD Rate: regular rate Rhythm: regular rhythm Heart sounds: S1 normal heart sound present, S2 normal heart sound present, no gallops and no murmurs GI Inspection: Yes normal to inspection, No distended and Yes obesity Palpation (GI): Soft to palpation, not firm, nontender and No hepatosplenomegaly present Auscultation: normal bowel sounds Rectal Exam - Male: Yes deferred (per pt) Neuro General: patient oriented x3 Gait exam (Neuro): Normal gait present Psych Appearance: grossly normal Mental Status: mental status grossly normal Speech and movement: Normal speech and movement present Affect: normal affect Attitude: cooperative Thought process: Normal thought process present Thought content: Normal thought content present Insight: Good insight present (Psych) Judgement: Good judgement present (Psych) Assessment & Plan Assessment & Plan (1) Rectal bleeding: Code(s): K62.5 - Hemorrhage of anus and rectum Category: Medical Plan: Acute painless hematochezia, recent dietary changes, prior hx of hemorrhoids, remote diverticulitis, no family hx GI malignancy, normal prior colonoscopies, and negative rectal exam at urgent care. Bleeding improving, hemodynamic instability. Additional Testing: -Colonoscopy ordered (due for routine screening and to r/o neoplasm/polyp/other source) -Abdominal/pelvic CT with IV and oral contrast to assess for diverticulosis/diverticular bleed (to be scheduled prior to or after travel as feasible) -Repeat CBC and renal function 1 week after initial ER labs (to be done after return from travel per pt's preference) Medication Management: -Continue current antihypertensive and tamsulosin -Avoid NSAIDs/ASA until further evaluation Lifestyle Recommendations: -Maintain high-fiber diet, adequate hydration -Avoid dietary triggers (excess cheese/junk food) -No alcohol/tobacco/drug use Follow-Up: -F/u in GI clinic in 3 months or sooner if symptoms worsen -Colonoscopy to be scheduled within 8 weeks post-travel -Instructions to seek immediate care if recurrent heavy bleeding, lightheadedness, syncope, or other acute symptoms while abroad Plan Follow-up in 3 months or sooner as needed Time: I spent a total of 45 minutes on the date of encounter which includes: Preparing to see the patient (reviewed previous documentation, test results and medical history) Performing a medically appropriate exam and/or evaluation Ordering medications, tests, and procedures Documenting clinical information in the health record Orders: Orders CT abdomen pelvis w IV con Today K62.5 - Hemorrhage of anus and rectum Complete Blood Count Auto Diff Today K62.5 - Hemorrhage of anus and rectum Basic Metabolic Panel Today K62.5 - Hemorrhage of anus and rectum Medications: New bisacodyl Take per colonoscopy instructions 5 mg PO BID 4 tabs 0RF polyethylene glycol 3350 (Miralax) per colonoscopy prep instructions 238 grams PO ONCE 238 grams 0RF Coding Level of Care Code New Pt New Pt Level 4 (15005) Patient Type New Diagnoses Rectal bleeding K62.5
[2024-10-10 13:12] VITALS: BP 145/67; PULSE 86; O2SAT 96; BMI 27.9
--- OUTSIDE RECORDS SUMMARY | 2024-10-10 14:20 | XMS_ITS | Encounter Summary ---
Author Organization [facility] Address [address] [place] [address] Care Team Providers Care Punch Press Setter Name Role Phone Jabari Sams MD Primary Care Provider Encounter Details Date Type Department Care Team (Late st Contact Info) Description 12/11/[address] [facility] - Main Lab [address] [place] [phone] Jabari Sams MD 299 [facility] [address] [place] [address] Other specified abnormal findings of blood chemistry [...] LAB CHEMISTRY METHOD 12/12/2023 1:52 PM EST [facility] Mean Bld Glu Estim. 120 mg/dL LAB CHEMISTRY METHOD 12/12/2023 1:52 PM EST [facility] Blood Venous blood specimen / Unknown 12/11/2023 12/11/2023 6:27 PM EST Jabari Sams MD LAB BLOOD ORDERABLES Final Result [facility] [address] [place] [address], documented in this encounter Visit Diagnoses Diagnosis Other specified abnormal findings of blood chemistry documented in this encounter Care Teams Punch Press Setter Relationship Specialty Start Date End Date Jabari Sams MD [address] PCP - General Internal Medicine 02/20/12 documented as of this encounter
--- OUTSIDE RECORDS SUMMARY | 2024-10-10 14:20 | XMS_ITS | Clinical Summary ---
Author Organization [address] Address [address] [place] [phone] Phone Care Team Providers Care High Scaler Name Role Phone Jabari Sams MD Primary Care Provider Surgical History Surgery Date Site/Laterality Comments COLONOSCOPY 09/04/2006 PROCEDURE: [place] COLONOSCOPY FLX DX W/COLLJ SPEC WHEN PFRMD; COMMENT: Diverticulosis ESOPHAGOGASTRODUODENOSCOPY 09/04/2006 PROCEDURE: [place] ESOPHAGOGASTRODUODENOSCOPY TRANSORAL DIAGNOSTIC; COMMENT: Negative on PPI [...] of Phone Billing Address Personal/Family Self 1960 [phone] (Work) [address] [place] [address] [facility] Care Teams High Scaler Relationship Specialty Start Date End Date Jabari Sams MD [address] [place] [address] PCP - General Internal Medicine 02/20/12
--- OUTSIDE RECORDS SUMMARY | 2024-10-10 14:20 | XMS_ITS | Patient Health Record ---
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
== END 2024-10-10 13:56 | disposition home or self-care (01) ==
LOC: HO.HGI 13:06
PROVIDERS: PCP Internal Medicine; Visit Provider Nurse Practitioner Family
DX: K62.5 Hemorrhage of anus and rectum (principal)
CPT/HCPCS: 99204

== ENCOUNTER → 2024-10-10 13:05 | Outpatient (BNVA) | payer MEDICARE, SELFPAY | PROVIDERS: PCP Internal Medicine; Visit Provider Nurse Practitioner Family | DX: K62.5 Hemorrhage of anus and rectum (principal) | CPT/HCPCS: 99202 ==